=== PATIENT | male | born 1975 | race Caucasian/White ===

== ENCOUNTER 2016-08-25 12:50 | Emergency (ER) | payer OTHER | END 2016-08-25 13:44 | disposition home or self-care (01) | LOC: ER 12:50 | DX: S50.01XA Contusion of right elbow, initial encounter (principal); S70.12XA Contusion of left thigh, initial encounter; S50.812A Abrasion of left forearm, initial encounter; G43.909 Migraine, unspecified, not intractable, without status migrainosus; M10.9 Gout, unspecified; E66.9 Obesity, unspecified; Z23 Encounter for immunization; W28.XXXA Contact with powered lawn mower, initial encounter | CPT/HCPCS: 90471 ==